=== PATIENT | female | born 1980 | race Asian ===

== ENCOUNTER 2016-06-28 08:00 | Inpatient (IN) | payer OTHER ==
--- NOTE | 2016-06-28 10:40 | OBPROG ---
OBG Progress Note Assessment/Plan: Assessment: cat 1 fhr pain irregular positive amnisure clear fluid vaginally intermittant monitoring will wait until noon for intervention pitocin us able to confirm cephalic consulted on poc with dr. cao Plan:expectant management of labor 06/28/16 10:38 Subjective: Srom 0430 feeling positive movement clear fluid denies pain - SVE Dilation (cm): 1 Effacement (%): Less than 50 Station: -3 Current Contraction Pattern: Irregular FHR (bpm): 135 FHR Pattern Variability: Moderate FHR Category: 1 Membranes: SROM Amniotic Fluid Color: Blood Tinged ICD10 Worksheet Patient Problems: Problems Problem Status Onset Full-term PROM with onset of labor within 24 hours of rupture Acute - ICD10 Problem Qualifiers (1) Full-term PROM with onset of labor within 24 hours of rupture
[2016-06-28] MEDS ORDERED: OXYTOCIN/RINGERS LACTATE 1,000 ML IV PRN (10:42)
[2016-06-28] MEDS ORDERED: TERBUTALINE SULFATE 1 MG/ML VIAL IV PRN (10:42)
[2016-06-28] MEDS ORDERED: LR 1,000 ML IV PRN (10:42)
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
[2016-06-28 12:35] LABS: ABSOLUTE IMMATURE GRANULOCYTES 0.09 10^3/uL (0.00-0.10); ADD DIFF? NO; ADD MORPH? NO; ADD SCAN? NO; ATYPICAL LYMPHOCYTE FLAG 10 (0-99); FRAGMENT RBC FLAG 0 (0-99); HEMATOCRIT 38.1 % (38.0-47.0); HEMOGLOBIN 12.7 g/dL (12.6-16.3); LEFT SHIFT FLG 10 (0-99); LIPEMIA HEMOLYSIS FLAG 80 (0-99); MEAN CELL HEMOGLOBIN 30.2 pg (27.9-34.1); MEAN CELL HEMOGLOBIN CONCENTR. 33.3 g/dL (32.4-36.7); MEAN CELL VOLUME 90.5 fL (81.5-99.8); MEAN PLATELET VOLUME 10.4 fL (8.7-11.7); PLATELET CLUMPS FLAG 0 (0-99); PLATELET COUNT 219 10^3/uL (150-400); RED BLOOD CELL COUNT 4.21 10^6/uL (4.18-5.33); RED CELL DISTRIBUTION WIDTH 14.5 % (11.5-15.2)
[2016-06-28] MEDS ORDERED: AMMONIA AROMATIC 1 EACH AMP IH ONE (12:56)
[2016-06-28] MEDS ORDERED: LIDOCAINE 1% 30 ML SDV ONE (12:56)
[2016-06-28] MEDS ORDERED: TERBUTALINE SULFATE 1 MG/ML VIAL ONE (12:57)
[2016-06-28] MEDS ORDERED: MISOPROSTOL 200 MCG TAB ONE (12:57)
[2016-06-28] MEDS ORDERED: OXYTOCIN 10 UNIT/ML VIAL ONE (12:57)
--- NOTE | 2016-06-28 13:21 | OBPROG ---
OBG Progress Note Assessment/Plan: Assessment: cat 1 fhr pain irregular clear fluid vaginally continuous monitoring monitoring no change to exam will begin pitocin pitocin per protocol reexam no change Plan:pitocin per protocol 06/28/16 10:38 06/28/16 13:18 Subjective: denies pain Objective: 06/28/16 12:25 Patient ABO/Rh O POSITIVE 06/28/16 12:25 Current Contraction Pattern: Irregular FHR (bpm): 135 FHR Category: 1 ICD10 Worksheet Patient Problems: Problems Problem Status Onset Full-term PROM with onset of labor within 24 hours of rupture Acute - ICD10 Problem Qualifiers (1) Full-term PROM with onset of labor within 24 hours of rupture
[2016-06-28] MEDS ORDERED: OXYTOCIN/RINGERS LACTATE 500 ML IV SCH (13:30)
[2016-06-28] MEDS ORDERED: PHENYLEPHRINE HCL 100 MCG/ML SYR ONE (16:10)
[2016-06-28] MEDS ORDERED: fentaNYL 100 MCG/2 ML INJ ONE (16:14)
[2016-06-28] MEDS ORDERED: BUPIVACAINE 0.25% 30 ML SDV ONE (16:15)
[2016-06-28] MEDS ORDERED: fentaNYL 2MCG/ML/BUP 0.1% RTU 100 ML BAG EP ONE (16:16)
--- NOTE | 2016-06-28 16:38 | OBPROG ---
OBG Progress Note Assessment/Plan: Assessment: cat 1 fhr pain regular contractions q 3-4 pitocin off until after epidural placement clear fluid vaginally continuous monitoring monitoringexam /-1 cephalic Plan:epidural for pain relief at patient request 06/28/16 10:38 06/28/16 13:18 06/28/16 16:36 Subjective: Complaint of greater pain with the contractions. Requesting epidural for pain relief at patients request Objective: 06/28/16 12:25 Patient ABO/Rh O POSITIVE 06/28/16 12:25 - SVE Dilation (cm): 4 Effacement (%): 100 Station: -1 Current Contraction Pattern: Regular FHR (bpm): 145 FHR Pattern Variability: Moderate FHR Category: 1 Membranes: SROM Amniotic Fluid Color: Clear ICD10 Worksheet Patient Problems: Problems Problem Status Onset Full-term PROM with onset of labor within 24 hours of rupture Acute - ICD10 Problem Qualifiers (1) Full-term PROM with onset of labor within 24 hours of rupture
--- NOTE | 2016-06-28 16:59 | OBPROG ---
OBG Progress Note Assessment/Plan: Assessment: cat 1 fhr pain regular contractions q 3-4 pitocin off until after epidural placement clear fluid vaginally continuous monitoring monitoringexam /-1 cephalic Plan:epidural for pain relief at patient request 06/28/16 10:38 06/28/16 13:18 06/28/16 16:36 Objective: 06/28/16 12:25 Patient ABO/Rh O POSITIVE 06/28/16 12:25 - Physical Exam General Appearance: WD/WN, alert, no apparent distress Respiratory: chest non-tender, lungs clear, normal breath sounds Cardiac/Chest: regular rate, rhythm Abdomen: normal bowel sounds, other (complaint of pain on left upper abdomen/ greater with movement/comes and goes) Membranes: Intact Extremities: normal range of motion, Ben's sign (negative bilaterally) DTR- Lower Extremities: Knee (R): 1+, Knee (L): 1+ Skin: normal color, warm/dry Neuro/Psych: no motor/sensory deficits, alert, normal mood/affect, oriented x 3 ICD10 Worksheet Patient Problems: Problems Problem Status Onset Full-term PROM with onset of labor within 24 hours of rupture Acute - ICD10 Problem Qualifiers (1) Full-term PROM with onset of labor within 24 hours of rupture
[2016-06-28] MEDS ORDERED: LR 500 ML IV SCH (17:30)
--- NOTE | 2016-06-28 18:15 | OBPROG ---
OBG Progress Note Assessment/Plan: Assessment: cat 2 fhr pain regular contractions q 3-4 pitocin at 2mu clear fluid vaginally continuous monitoring monitoring exam 100/0 cephalic Plan:expectant management of labor 06/28/16 10:38 06/28/16 13:18 06/28/16 16:36 06/28/16 18:13 Subjective: Feeling comfortable after epidural placement Objective: 06/28/16 12:25 Patient ABO/Rh O POSITIVE 06/28/16 12:25 - SVE Dilation (cm): 9 Effacement (%): 100 Station: 0 Current Contraction Pattern: Regular FHR (bpm): 125 FHR Pattern Variability: Moderate FHR Category: 2 Amniotic Fluid Color: Clear ICD10 Worksheet Patient Problems: Problems Problem Status Onset Full-term PROM with onset of labor within 24 hours of rupture Acute - ICD10 Problem Qualifiers (1) Full-term PROM with onset of labor within 24 hours of rupture
[2016-06-28] MEDS ORDERED: HYDROCORTISONE 0.5% CREAM TP PRN (19:36)
[2016-06-28] MEDS ORDERED: ACETAMINOPHEN 325 MG TAB PO PRN (19:36)
[2016-06-28] MEDS ORDERED: SIMETHICONE 80 MG TAB CHEW PO PRN (19:36)
[2016-06-28] MEDS ORDERED: HYDROCODONE/APAP 5/325 TAB PO PRN (19:36)
--- NOTE | 2016-06-28 19:36 | OBPROC ---
- Labor and Delivery Onset of Contractions Date: 06/28/16 Onset of Contractions Time: 13:30 Onset of Contractions Type: Augmented Rupture of Membranes Date: 06/28/16 Rupture of Membranes Time: 13:30 Rupture of Membranes Type: Spontaneous Amniotic Fluid Color: Clear Dilation Complete Time: 18:45 Delivery Type: Spontaneous Placenta Delivery Date: 06/28/16 Placenta Delivery Time: 19:04 Episiotomy/Laceration: 2nd Degree Repair: 3-0, Vicryl EBL: 350 Complications: Nuchal Cord - Medications Labor Augmentation/Induction Meds Used: Pitocin Labor Augmentation/Induction Indication: Other (Specify) (prolonged rom) Anesthesia: Epidural - Info A Delivery Date: 06/28/16 Delivery Time: 18:57 Sex of Infant: Male Score (1 Min): 9 Score (5 Min): 10
[2016-06-28] MEDS: IBUPROFEN 600 MG TAB PO PRN (20:57)
[2016-06-28 22:18] VITALS: RESP 16; O2SAT 95
[2016-06-29] MEDS: IBUPROFEN 600 MG TAB PO PRN ×3 (03:45→19:47)
--- NOTE | 2016-06-29 11:41 | OBPROG ---
OBG Progress Note Assessment/Plan: Assessment: 36 y/o PPD#1 s/p doing well. Plan: PT evaluation, support and routine PPC. 06/29/16 11:42 Subjective: Pt is doing much better this am. She has min pubic bone pain after this delivery compared to last delivery and she just had a PT evaluation to ensure that she is aware of how to move to protect her pelvis. Breast feeding is going well and she is pumping as well. Objective: 06/28/16 12:25 Patient ABO/Rh O POSITIVE 06/28/16 12:25 Temp Pulse Resp BP Pulse Ox 36.4 C 66 16 89/55 L 95 06/29/16 08:00 06/29/16 08:00 06/29/16 08:00 06/29/16 08:00 06/28/16 23:45 Uterine Position/Fundal Height: Umbilicus -2 Uterine Tone: Firm - Physical Exam General Appearance: WD/WN, alert, no apparent distress Neck: non-tender, full range of motion, supple Respiratory: chest non-tender, lungs clear, normal breath sounds Cardiac/Chest: regular rate, rhythm Abdomen: normal bowel sounds Extremities: swelling (1+), Ben's sign (neg) ICD10 Worksheet Patient Problems: Problems Problem Status Onset Full-term PROM with onset of labor within 24 hours of rupture Acute
[2016-06-29] MEDS: DOCUSATE SODIUM 100 MG CAP PO PRN (19:47)
[2016-06-30] MEDS: IBUPROFEN 600 MG TAB PO PRN ×2 (02:19→08:08)
[2016-06-30] MEDS: DOCUSATE SODIUM 100 MG CAP PO PRN (08:08)
--- NOTE | 2016-06-30 08:24 | SOAPPROG ---
SOAP Progress Note Assessment/Plan: Assessment: abdominal binder in place for symphasis pubis separation pt consult pain well managed with soreness discussed ways to assist voiding without difficulty ambulating without [id number] scant rubra lochia perineum approximated Plan:discharge to home with instructions fu 2 weeks and 6 weeks pain management PT fu, pericare, and pain resolution, depression, contraception, ss infection verbalized understanding of all of the above 06/28/16 10:38 06/28/16 13:18 06/28/16 16:36 06/28/16 18:13 06/30/16 08:21 Subjective: doing well . Sore with . symphasis pubis. abdominal binder in place Objective: Vital Signs Temp Pulse Resp BP Pulse Ox 36.7 C 80 16 99/65 L 95 06/29/16 19:46 06/29/16 19:46 06/29/16 19:46 06/29/16 19:46 06/29/16 19:46 Laboratory Results 06/28/16 12:25 06/29/16 06/30/16 07/01/16 05:59 05:59 05:59 Output Total 350 Balance -350 - Time Spent With Patient Time Spent With Patient: 20 minutes - Pending Discharge Pending Discharge Date: 06/30/16 Pending Discharge Time: 11:00 ICD10 Worksheet Patient Problems: Problems Problem Status Onset Full-term PROM with onset of labor within 24 hours of rupture Acute - ICD10 Problem Qualifiers (1) Full-term PROM with onset of labor within 24 hours of rupture
[2016-06-30 08:30] VITALS: BP 99/66; PULSE 74; TEMP 98
== END 2016-06-30 16:25 | disposition home or self-care (01) | DRG 775 ==
LOC: FLD 08:00 → OBSVTOIN 08:48 → FOB 21:21
PROVIDERS: ADMIT Advanced Practice Midwife; ATTEND Advanced Practice Midwife
PROC: 0KQM0ZZ Repair Perineum Muscle, Open Approach (ICD-10-PCS; principal; 2016-06-28)
PROC: 10E0XZZ Delivery of Products of Conception, External Approach (ICD-10-PCS; principal; 2016-06-28)
DX: O69.82X0 Labor and delivery complicated by other cord entanglement, without compression, not applicable or unspecified (principal); Z37.0 Single live birth; O70.1 Second degree perineal laceration during delivery; Z3A.38 38 weeks gestation of pregnancy; O09.523 Supervision of elderly multigravida, third trimester
CPT/HCPCS: 97161-GP; G0463; J2370; J2590; J3010; J3105

== ENCOUNTER → 2016-07-10 | Outpatient (CLI) | payer OTHER | LOC: FLACT 10:21 | PROVIDERS: ATTEND Advanced Practice Midwife | DX: O92.79 Other disorders of lactation (principal) | CPT/HCPCS: G0463 ==

== ENCOUNTER → 2016-07-17 | Outpatient (CLI) | payer OTHER | LOC: FLACT 10:09 | PROVIDERS: ATTEND Advanced Practice Midwife | DX: O92.79 Other disorders of lactation (principal); O92.13 Cracked nipple associated with lactation | CPT/HCPCS: G0463 ==

== ENCOUNTER → 2016-07-23 | Outpatient (CLI) | payer OTHER | LOC: FLACT 14:20 | PROVIDERS: ATTEND Advanced Practice Midwife | DX: O92.13 Cracked nipple associated with lactation (principal); O92.79 Other disorders of lactation | CPT/HCPCS: G0463 ==

== ENCOUNTER → 2016-07-31 | Outpatient (CLI) | payer OTHER | LOC: FLACT 10:07 | PROVIDERS: ATTEND Advanced Practice Midwife | DX: Z39.0 Encounter for care and examination of mother immediately after delivery (principal); O92.29 Other disorders of breast associated with pregnancy and the puerperium | CPT/HCPCS: G0463 ==

== ENCOUNTER → 2016-08-14 | Outpatient (CLI) | payer OTHER | LOC: FLACT 10:49 → EDSTATUS 10:52 | PROVIDERS: ATTEND Advanced Practice Midwife | DX: O92.79 Other disorders of lactation (principal); N64.4 Mastodynia | CPT/HCPCS: G0463 ==

== ENCOUNTER → 2018-04-30 | Outpatient (CLI) | payer OTHER | LOC: BMCIMAGING 11:29 | PROVIDERS: ATTEND Podiatrist Foot & Ankle Surgery | DX: M79.672 Pain in left foot (principal) ==